=== PATIENT | female | born 1965 | race Caucasian/White ===

== ENCOUNTER 2016-12-19 14:10 | Emergency (ER) | payer BC ==
[2016-12-19 14:25] VITALS: BP 171/86
[2016-12-19] MEDS ORDERED: Ondansetron 4 MG/2 ML SDV IVPUSH ONE (14:25)
[2016-12-19] MEDS ORDERED: Morphine 2 MG/ML Syringe IVPUSH ONE ×2 (14:25→15:27)
[2016-12-19] MEDS ORDERED: Diphtheria,Pertussis(Acell),Tetanus Vaccine 0.5 ML Syringe IM ONE (15:28)
[2016-12-19] MEDS ORDERED: Bacitracin Oint 28.35 GM Tube TOP SCH (15:45)
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
== END 2016-12-19 16:15 | disposition home or self-care (01) ==
LOC: CC.ED 14:10
DX: T20.26XA Burn of second degree of forehead and cheek, initial encounter (principal); T20.24XA Burn of second degree of nose (septum), initial encounter; T20.22XA Burn of second degree of lip(s), initial encounter; T22.111A Burn of first degree of right forearm, initial encounter; Z23 Encounter for immunization; Z90.49 Acquired absence of other specified parts of digestive tract; X11.8XXA Contact with other hot tap-water, initial encounter
CPT/HCPCS: 90471; 90715; 96374; 96375; 96376; 99283; A9270; J2270; J2405

== ENCOUNTER → 2019-02-14 | Day surgery (SDC) | payer BC ==
[~2019-02-14] MED LIST: Lactated Ringers 1,000 ML IV SCH; Midazolam 1 MG/ML 2 ML SDV IV ONE; fentaNYL 100 MCG/2 ML SDV IV ONE
[2019-02-14 11:21] VITALS: BP 117/74; PULSE 97
--- NOTE | 2019-02-14 13:16 | OR ---
DATE OF OPERATION: 02/14/2019 PREOPERATIVE DIAGNOSIS: SCREENING COLONOSCOPY. POSTOPERATIVE DIAGNOSIS: SCREENING COLONOSCOPY. SURGEON: Liborio Marrero MD PROCEDURE: TOTAL COLONOSCOPY. ANESTHESIA: Conscious sedation with IV Versed and fentanyl. SPECIMEN: None. FINDINGS: Normal colonoscopy. RECOMMENDATIONS: Follow up screening colonoscopy in 10 years. INDICATIONS: This 54-year-old female presents for screening first-time colonoscopy. DESCRIPTION OF PROCEDURE: After adequate preparation, the colonoscope was inserted into the rectum. This was passed through the left colon and into the midtransverse colon. However, at that point, I could not advance the scope past a band in the transverse colon and could not keep the loop reduced on this. Multiple maneuvers were tried, placed her on her back with multiple different abdominal pressures, still could not advance the scope. I withdrew the scope and changed it to a different colonoscope and encountered the same kinked area in the transverse colon, must be secondary to adhesion. I was finally able to get the scope around this and then the scope easily passed all the way to the cecum. Confirmation of the cecum was made by visualization of the ileocecal valve and palpation in the right lower quadrant. There was also a light shining through the right lower quadrant. The bowel prep was very good. On withdrawal of the scope, there were no abnormalities noted. Anal and rectal examination were normal, except for some external hemorrhoids, but she does not have any significant internal hemorrhoids. There were no other masses, polyps, diverticula, or evidence of colitis. Air was suctioned from the colon, and the scope was removed. ROSA/KAYODE /[id number]
== END ==
LOC: CC.SDS 07:32
PROVIDERS: ATTEND Surgery
DX: Z12.11 Encounter for screening for malignant neoplasm of colon (principal); K64.4 Residual hemorrhoidal skin tags; K21.9 Gastro-esophageal reflux disease without esophagitis; F17.210 Nicotine dependence, cigarettes, uncomplicated
CPT/HCPCS: 36415; 84703; G0121; J2250; J3010; J7120

== ENCOUNTER 2019-09-14 23:01 | Emergency (ER) | payer BC ==
[2019-09-14 23:03] VITALS: BP 153/82; PULSE 74
[2019-09-14 23:25] LABS: CHLORIDE,CL 101 mEq/L (98-106); SODIUM,NA 139 mEq/L (136-145)
--- NOTE | 2019-09-14 23:30 | EDM.PDOC ---
ED HPI GENERAL MEDICAL PROBLEM - General Chief Complaint: Lower Extremity Injury/Pain Stated Complaint: swollen leg Time Seen by Provider: 09/14/19 23:17 Source of Information: Reports: Patient History Limitations: Reports: No Limitations - History of Present Illness INITIAL COMMENTS - FREE TEXT/NARRATIVE: This patient is a 54 year old female that presents to the ER. Patient reports her family told her today that her RLE looked swollen. Patient reports she has been doing some running lately and has been having some mild upper knee pain. Denies n, v, d, f, redness, swelling, trauma/injury. Onset: Today Duration: Day(s): (1) Location: Reports: Lower Extremity, Right Quality: Reports: Ache Severity: Mild Improves with: Reports: Immobilization, Rest Worsens with: Reports: Movement (going up steps) Associated Symptoms: Reports: No Other Symptoms. Denies: Confusion, Chest Pain , Cough, cough w sputum, Diaphoresis, Fever/Chills, Headaches, Loss of Appetite , Malaise, Nausea/Vomiting, Rash, Seizure, Shortness of Breath, Syncope, Weakness - Related Data Allergies Allergy/AdvReac Type Severity Reaction Status Date / Time No Known Allergies Allergy Verified 09/14/19 23:04 Home Meds: Home Meds . [No Known Home Meds] 01/29/14 [History] Past Medical History - Past Health History Medical/Surgical History: Denies Medical/Surgical History - Past Surgical History GI Surgical History: Reports: Cholecystectomy Social & Family History - Tobacco Use Smoking Status *Q: Never Smoker - Caffeine Use Caffeine Use: Reports: Coffee - Recreational Drug Use Recreational Drug Use: No Review of Systems - Review of Systems Review Of Systems: See Below Constitutional: Reports: No Symptoms Eyes: Reports: No Symptoms Ears: Reports: No Symptoms Nose: Reports: No Symptoms Mouth/Throat: Reports: No Symptoms Respiratory: Reports: No Symptoms Cardiovascular: Reports: No Symptoms GI/Abdominal: Reports: No Symptoms Genitourinary: Reports: No Symptoms Musculoskeletal: Reports: Joint Pain (upper right knee pain), Joint Swelling ( right knee/right Calf.) Skin: Reports: No Symptoms Neurological: Reports: No Symptoms Psychiatric: Reports: No Symptoms ED EXAM, GENERAL - Physical Exam Exam: See Below Exam Limited By: No Limitations General Appearance: Alert, WD/WN, No Apparent Distress Respiratory/Chest: No Respiratory Distress, Lungs Clear, Normal Breath Sounds, No Accessory Muscle Use Cardiovascular: Normal Peripheral Pulses, Regular Rate, Rhythm, No Edema, No Gallop, No JVD, No Murmur, No Rub Peripheral Pulses: 2+: Popliteal (L), Popliteal (R), Posterior Tibial (L), Posterior Tibial (R) Extremities: Normal Inspection, Normal Range of Motion, No Pedal Edema, Normal Capillary Refill, Other (mild tenderness anterior upper knee. Very mild. ROM intact. Neurovascular intact. Pulses +2, cap refill < 2 sec, sensory.motor function intact. I do not notice swelling or circumference difference between lower extremities.). No: Pedal Edema, Increased Warmth, Mottled, Pallor, Redness Neurological: Alert, Oriented Psychiatric: Normal Affect, Normal Mood Skin Exam: Warm, Dry, Intact, Normal Color, No Rash Course - Vital Signs Last Recorded V/S: Last Vital Signs Temp 98.3 F 09/14/19 23:01 Pulse 74 09/14/19 23:01 Resp 16 09/14/19 23:01 BP 153/82 H 09/14/19 23:01 Pulse Ox 100 09/14/19 23:01 - Orders/Labs/Meds Orders: Active Orders 24 hr Category Date Time Status VL Duplex Lwr Ext Veins Ltd Rt [US] Stat Exams 09/14/19 23:06 Taken CMP [COMPREHENSIVE METABOLIC PN,CMP] [CHEM] Stat Lab 09/14/19 23:20 Results INR,PT,PROTHROMBIN TIME [COAG] Stat Lab 09/14/19 23:19 Ordered PTT,PARTIAL THROMBOPLSTIN TIME [COAG] Stat Lab 09/14/19 23:19 Received Labs: Laboratory Tests 09/14/19 09/14/19 Range/Units 23:20 23:20 WBC 7.2 (5.0-10.0) 10^3/uL RBC 4.23 (4.00-5.50) 10^6/uL Hgb 12.8 (12.0-16.0) g/dL Hct 39.1 (37.0-47.0) % MCV 92.4 (82.0-94.0) fL MCH 30.3 (27.0-32.0) pg MCHC 32.7 L (33.0-38.0) g/dL RDW Coeff of Rosalee 12.7 (11.0-15.0) % Plt Count 344 (150-400) 10^3/uL Neut % (Auto) 54.6 (35-85) % Lymph % (Auto) 35.0 (10-55) % [place] % (Auto) 8.2 (0-16) % Eos % (Auto) 1.8 (0-5) % Baso % (Auto) 0.4 (0-3) % Neut # (Auto) 3.95 (1.80-7.00) 10^3/uL Lymph # (Auto) 2.53 (1.00-4.80) 10^3/uL [place] # (Auto) 0.59 (0.00-0.80) 10^3/uL Eos # (Auto) 0.13 (0.00-0.45) 10^3/uL Baso # (Auto) 0.03 10^3/uL Sodium 139 (136-145) mEq/L Potassium 3.7 (3.5-5.0) mEq/L Chloride 101 (98-106) mEq/L Carbon Dioxide 28 (21-32) mmol/L BUN 20 H (7-18) mg/dL Creatinine 0.9 (0.6-1.0) mg/dL Est Cr Clr Drug Dosing 68.45 mL/min Estimated GFR (MDRD) > 60 (>=60) mL/min Glucose 86 (75-99) mg/dL Calcium 9.1 (8.4-10.1) mg/dL Departure - Departure Time of Disposition: 23:35 Disposition: Home, Self-Care 01 Condition: Good Clinical Impression: Leg pain Qualifiers: Laterality: right Qualified Code(s): M79.604 - Pain in right leg - Discharge Information *PRESCRIPTION DRUG MONITORING PROGRAM REVIEWED*: Not Applicable *COPY OF PRESCRIPTION DRUG MONITORING REPORT IN PATIENT SAMIR: Not Applicable Instructions: Pain Without a Known Cause Referrals: PCP,None [Primary Care Provider] - Forms: ED Department Discharge Additional Instructions: Followup with primary care provider Return to the ER for emergencies such as redness, fever, vomiting, or other concerns Sepsis Event Note - Evaluation Sepsis Screening Result: No Definite Risk - Focused Exam Vital Signs: Vital Signs Temp Pulse Resp BP Pulse Ox 09/14/19 23:01 98.3 F 74 16 153/82 H 100 Date Exam was Performed: 09/14/19 Time Exam was Performed: 23:40 - My Orders Last 24 Hours: My Active Orders 09/14/19 23:06 VL Duplex Lwr Ext Veins Ltd Rt [US] Stat 09/14/19 23:19 INR,PT,PROTHROMBIN TIME [COAG] Stat PTT,PARTIAL THROMBOPLSTIN TIME [COAG] Stat 09/14/19 23:20 CMP [COMPREHENSIVE METABOLIC PN,CMP] [CHEM] Stat - Assessment/Plan Last 24 Hours: My Active Orders 09/14/19 23:06 VL Duplex Lwr Ext Veins Ltd Rt [US] Stat 09/14/19 23:19 INR,PT,PROTHROMBIN TIME [COAG] Stat PTT,PARTIAL THROMBOPLSTIN TIME [COAG] Stat 09/14/19 23:20 CMP [COMPREHENSIVE METABOLIC PN,CMP] [CHEM] Stat Plan: PLEASE SEE RN NOTE FOR PFSH
[2019-09-14 23:40] LABS: PTT,PARTIAL THROMBOPLSTIN TIME 24.5 SEC (23.2-32.3)
== END 2019-09-14 23:36 | disposition home or self-care (01) ==
LOC: CC.ED 23:01
DX: M79.604 Pain in right leg (principal)
CPT/HCPCS: 36415; 80053; 85025; 85610; 85730; 93971-RT; 99284-25